=== PATIENT | female | born 1990 | race Native Hawaiian/Other Pacific Islander ===

== ENCOUNTER 2018-05-20 14:52 | Emergency (ER) | payer OTHER ==
[2018-05-20 15:33] VITALS: BMI 21.2
[2018-05-20] MEDS ORDERED: Lactated Ringer's 1,000 ML IV ONE (15:45)
[2018-05-20 16:06] LABS: BASO % 0.2 % (0.0-2.0); EOS # 0.2 K/uL (0.0-0.7); HEMOGLOBIN 13.3 g/dL (11.0-16.0); LYMPH # 1.8 K/uL (1.0-4.3); MEAN CELL VOLUME 94.7 fL (81.0-99.0); MEAN CORPUSCULAR HEMOGLOBIN 32.1 pg (27.0-31.0); MEAN CORPUSCULAR HGB CONC 33.9 g/dL (33.0-37.0); MEAN PLATELET VOLUME 8.2 fL (7.2-11.7); MONO # 0.9 K/uL (0.0-0.8); MONO % 8.1 % (0.0-10.0); NEUT # 7.9 K/uL (1.8-7.0); NEUT % 72.7 % (50.0-75.0); RBC 4.15 Mil/uL (3.80-5.20); RED CELL DISTRIBUTION WIDTH 13.7 % (11.5-14.5); WHITE BLOOD COUNT 10.9 K/uL (4.8-10.8)
[2018-05-20 16:11] LABS: ALB/GLOB RATIO 1.5 (1.0-2.1); ALBUMIN 4.2 g/dL (3.5-5.0); ALT/SGPT 18 U/L (9-52); AST/SGOT 23 U/L (14-36); BLOOD UREA NITROGEN 8 mg/dL (7-17); CALCIUM 9.9 mg/dl (8.6-10.4); GFR NON-AFRICAN AMERICAN > 60
[2018-05-20 16:17] LABS: SQUAMOUS EPITHIAL 6 /hpf (0-5); URINE BACTERIA MANY (<OCC); URINE BILIRUBIN NEGATIVE (NEGATIVE); URINE BLOOD 3+ (NEGATIVE); URINE CLARITY Hazy (Clear); URINE COLOR Yellow (YELLOW); URINE GLUCOSE (UA) NORMAL (Normal); URINE LEUKOCYTE ESTERASE TRACE Leu/uL (Negative); URINE PROTEIN NEGATIVE (NEGATIVE); URINE UROBILINOGEN NORMAL mg/dL (0.2-1.0)
--- NOTE | 2018-05-20 17:08 | US ---
Indication: 29 weeks with bleeding and contraction. Comparison: None available Technique: Real-time ultrasound was performed through the pelvis. Findings: There is a single living fetus in breech presentation. Amniotic fluid volume is within normal limits. Anterior placenta. The placenta is not previa. There are no adnexal masses or cysts evident. Cervix length measures approximately 3.0 cm. The study was performed for the emergent evaluation of bleeding, and the whole anatomic survey of the fetus was not performed. Limited visualized anatomy appears grossly unremarkable. This should be performed on an outpatient elective basis as clinically warranted. Measurements and calculations: Fetus has a composite sonographic age of 29 weeks 2 days. This calculation is based on the biparietal diameter, head circumference, abdominal circumference, and femur length. Estimated heart rate 152.3 beats per min. Estimated weight 1364 g. Biophysical profile: movements 2/2 breathing 2/2 tone 2/2 Amniotic fluid 2/2 Total score impression: /8 Impression: Single living fetus with a composite sonographic age of 29 weeks 2 days. Estimated heart rate 152.3 beats per min. Biophysical profile of 8 out of 8.
[2018-05-20 22:05] VITALS: BP 119/63; PULSE 81; RESP 18; TEMP 98.1; O2SAT 99
== END 2018-05-20 18:00 | disposition home or self-care (01) ==
LOC: C.EROB 14:52
DX: O26.853 Spotting complicating pregnancy, third trimester (principal); Z3A.29 29 weeks gestation of pregnancy
CPT/HCPCS: 76815; 76818; 80053; 81001; 85025; 86850; 86900; 96360; 96361; 99284; J7120

== ENCOUNTER 2018-07-07 07:33 | Emergency (ER) | payer OTHER ==
[2018-07-07 20:35] VITALS: BMI 29.8
[2018-07-07] MEDS ORDERED: Lactated Ringer's 1,000 ML IV ONE (20:35)
--- NOTE | 2018-07-07 22:33 | OBHP ---
Datetime: 07/07/2018 20:28 IP Adm Impression: , intrauterine IP Admit Plan: Observation/Evaluation Admit Comment, IP Provider: Patient is a 28 year old female at 35.6wk by LMP and 1st trim us . She presents w/ c/o irregular ctxs x1wk w/ increased intensity and a more regular frequ of q6min s adrián today. She states she has had a breech presentation. 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 She denies urinary frequency, hem aturia, dysuria, diarrhea, or constipation. She further denies fevers, chills, shortness of breath, c hest pain, nausea, or vomiting. 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 Sponatenous at 8 weeks 4 years ago. 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 Had regular periods every 30 days. Menarche at age 15. Denies history of S TD's or abnormal PAPs. PMHx: Dextrocardia; situs invertis PSHx: Denies Allergies: Penicillin- pruritis, hives. Social Hx: Denies tobacco, alcohol, or drug use. Patient is currently unemployed. I: Evaluate for Early Labor Breech P: observe iv hydration addendum: repeat exam in@20:30 no change reviewed labor precautions and kick counts. f/u with ob dr carrillo doll'lc Pelvic Type - PN: Adequate Extremities - PN: Normal Abdomen - PN: Normal Lungs - PN: Normal Heart - PN: Normal Neurologic - PN: Normal HEENT - PN: Normal General - PN: Normal Presentation-Admit: Breech FHR - Baseline A Provider: 130 Membranes, Provider: Intact EGA AdmitDate IP: 35.6 Vital Signs Provider: Reviewed IP Chief Complaint: Uterine contractions NICHD Variability Prov Fetus A: Moderate 6-25bpm NICHD Accel Fetus A IP Provider: [id number] FHR Category Provider Fetus A: Category I NICHD Decel Fetus A IP Provider: None Dilatation, Provider: 0 Effacement, Provider: 20 Station, Provider: -2 Genitourinary Exam: Normal Datetime: 05/20/2018 15:46 Back - PN: Normal Breast - PN: Not Done Thyroid - PN: Not Done Comments, ACOG Physical Exam: Gen: AAO X3, NAD Lungs: CTA b/l Heart: RRR, S1, S2. Heart sounds noted on the right chest. Abdomen: SOft, Non-tender, normal bowel sounds Extremities: No pedal edema Speculum exam: Small amount of bloody-brownish discharge in the vaginal vault, no active bleeding noted DTRs - PN: Not Done
[2018-07-08 03:08] VITALS: BP 115/45; PULSE 84; RESP 20; TEMP 98
== END 2018-07-07 22:50 | disposition home or self-care (01) ==
LOC: C.EROB 07:33
DX: O47.03 False labor before 37 completed weeks of gestation, third trimester (principal); Z3A.35 35 weeks gestation of pregnancy
CPT/HCPCS: 82948; 96360; 99284; J7120